=== PATIENT | female | born 1935 | race Caucasian/White ===

== ENCOUNTER → 2016-10-28 | Outpatient (CLI) | payer MEDICARE, BC ==
--- NOTE | 2016-10-28 14:30 | XR ---
EXAMINATION TYPE: XR chest 2V DATE OF EXAM: 10/28/2016 1:39 PM COMPARISON: Prior chest x-ray from April 11 2015 HISTORY: Acute bronchitis, cough TECHNIQUE: Frontal and lateral views of the chest are obtained. FINDINGS: There is no focal air space opacity, pleural effusion, or pneumothorax seen. The cardiac silhouette size is stable. Prominent lung volume may be indicative of underlying COPD. The osseous st ructures are intact, scoliotic curvature of the spine is unchanged.. IMPRESSION: No acute cardiopulmonary process.
== END ==
LOC: RADXRMAIN 13:24
PROVIDERS: ATTEND Internal Medicine
DX: J20.9 Acute bronchitis, unspecified (principal)
CPT/HCPCS: 71020

== ENCOUNTER → 2017-03-03 | Outpatient (CLI) | payer MEDICARE, BC ==
--- NOTE | 2017-03-03 11:29 | US ---
EXAMINATION TYPE: US carotid duplex BILAT DATE OF EXAM: 03/03/2017 COMPARISON: US CLINICAL HISTORY: I65.23 carotid stenosis. Stenosis EXAM MEASUREMENTS: RIGHT: Peak Systolic Velocity (PSV) cm/sec ----- Right CCA: 85.0 ----- Right ICA: 80.3 ----- Right ECA: 68.5 ICA/CCA ratio: 0.9 RIGHT: End Diastole cm/sec ----- Right CCA: 20.9 ----- Right ICA: 25.4 ----- Right ECA: 6.0 LEFT: Peak Systolic Velocity (PSV) cm/sec ----- Left CCA: 65.2 ----- Left ICA: 94.8 ----- Left ECA: 69.5 ICA/CCA ratio: 1.5 LEFT: End Diastole cm/sec ----- Left CCA: 15.7 ----- Left ICA: 29.0 ----- Left ECA: 0.0 VERTEBRALS (direction of flow): Right Vertebral: Antegrade Left Vertebral: Antegrade Bilateral intimal thickening, plaque bilateral bulb, no significant stenosis. IMPRESSION: Minimal atherosclerosis within the bilateral carotid bulbs with no 8 hemodynamically sig nificant stenosis
--- NOTE | 2017-03-04 17:41 | ECHOF ---
Referral Reason:I65.23 carotid stenosis MEASUREMENTS -------- HEIGHT: 167.6 cm WEIGHT: 70.3 kg BP: 143/70 RVIDd: 1.8 cm (< 3.3) IVSd: 1.0 cm (0.6 - 1.1) LVIDd: 4.9 cm (3.9 - 5.3) LVPWd: 1.0 cm (0.6 - 1.1) IVSs: 1.4 cm LVIDs: 3.2 cm LVPWs: 1.4 cm LAESV Index (A-L): 26.83 ml/m Ao Diam: 3.5 cm (2.0 - 3.7) AV Cusp: 2.2 cm (1.5 - 2.6) LA Diam: 3.2 cm (2.7 - 3.8) MV EXCURSION: 17.007 mm (> 18.000) MV EF SLOPE: 93 mm/s (70 - 150) EPSS: 0.8 cm MV E Rachid: 0.99 m/s MV DecT: 230 ms MV A Rachid: 0.91 m/s MV E/A Ratio: 1.08 AR PHT: 556 ms RAP: 5.00 mmHg RVSP: 44.18 mmHg FINDINGS -------- Sinus rhythm. This was a technically adequate study. Overall left ventricular systolic function is normal with, an EF between 60 - 65 %. The right ventricle is normal in size and function. Normal LA size by volume 22+/-6 ml/m2. The right atrium is normal in size. Aortic valve is trileaflet and is mildly thickened. There is mild aortic regurgitation. The aortic pressure half-time by doppler is 556ms. There is no evidence of aortic stenosis. The mitral valve leaflets are mildly thickened. Mild mitral annular calcification present. Mild mitral regurgitation is present. Mild tricuspid regurgitation present. There is mild pulmonary hypertension. The right ventricular systolic pressure, as measured by Doppler, is 44.18mmHg. Trace/mild (physiologic) pulmonic regurgitation. The aortic root size is normal. The inferior vena cava is mildly dilated. There is a trivial pericardial effusion present. CONCLUSIONS -------- 1. Sinus rhythm. 2. Mild tricuspid regurgitation present. 3. There is mild pulmonary hypertension. 4. The right ventricular systolic pressure, as measured by Doppler, is 44.18mmHg. 5. Trace/mild (physiologic) pulmonic regurgitation. 6. The aortic root size is normal. 7. The inferior vena cava is mildly dilated. 8. There is a trivial pericardial effusion present. 9. This was a technically adequate study. 10. Overall left ventricular systolic function is normal with, an EF between 60 - 65 %. 11. Normal LA size by volume 22+/-6 ml/m2. 12. Aortic valve is trileaflet and is mildly thickened. 13. The aortic pressure half-time by doppler is 556ms. 14. The mitral valve leaflets are mildly thickened. 15. Mild mitral annular calcification present. 16. Mild mitral regurgitation is present. WET PROCESS MILLER: Job Miranda RDCS
== END | disposition home or self-care (01) ==
LOC: RADUSMAIN 10:34
PROVIDERS: ATTEND Internal Medicine
DX: I65.23 Occlusion and stenosis of bilateral carotid arteries (principal); I07.1 Rheumatic tricuspid insufficiency; I34.0 Nonrheumatic mitral (valve) insufficiency; I31.3 Pericardial effusion (noninflammatory); I27.2 Other secondary pulmonary hypertension
CPT/HCPCS: 93306; 93880

== ENCOUNTER → 2019-06-04 | Outpatient (CLI) | payer MEDICARE, BC ==
--- NOTE | 2019-06-04 16:22 | US ---
EXAMINATION TYPE: US carotid duplex BILAT DATE OF EXAM: 06/04/2019 COMPARISON: Carotid ultrasound March 03, 2017 CLINICAL HISTORY: I65.23 carotid stenosis I34.0 mitral regurg. Stenosis EXAM MEASUREMENTS: RIGHT: Peak Systolic Velocity (PSV) cm/sec ----- Right CCA: 80.1 ----- Right ICA: 75.3 ----- Right ECA: 64.0 ICA/CCA ratio: 0.6 RIGHT: End Diastole cm/sec ----- Right CCA: 22.9 ----- Right ICA: 26.8 ----- Right ECA: 0 LEFT: Peak Systolic Velocity (PSV) cm/sec ----- Left CCA: 59.2 ----- Left ICA: 77.0 ----- Left ECA: 89.9 ICA/CCA ratio: 0.9 LEFT: End Diastole cm/sec ----- Left CCA: 18.8 ----- Left ICA: 31.7 ----- Left ECA: 0 VERTEBRALS (direction of flow): Right Vertebral: Antegrade Left Vertebral: Antegrade Rhythm: Normal Vessels dive deep. No significant stenosis seen Suboptimal study due to tortuous vessel course. Grayscale images show no obvious large suspicious jose que. IMPRESSION: No hemodynamically significant stenosis in either internal carotid artery. Criteria for Assigning % of Stenosis / Diameter reduction (Estimation based on the indirect measurements of the internal carotid artery velocities (ICA PSV). 1. Normal (no stenosis)=ICA PSV < 125 cm/s: ratio < 2.0: ICA EDV<40 cm/s. 2. Less than 50% stenosis=ICA PSV < 125 cm/s: ratio < 2.0: ICA EDV<40 cm/s. 3. 50 to 69% stenosis=ICA PSV of 125 to 230 cm/s: ration 2.0 ? 4.0: ICA EDV 40-100 cm/s. 4. Greater than 70% stenosis to near occlusion= ICA PSV > 230 cm/s: ratio > 4.0: ICA EDV > 100 cm/s. 5. Near occlusion= ICA PSV velocities may be low or undetectable: variable ratio and ICA EDV. 6. Total occlusion=unable to detect flow.
--- NOTE | 2019-06-05 11:01 | ECHOF ---
Referral Reason:I65.23 carotid stenosis I34.0 mitral regurg MEASUREMENTS -------- HEIGHT: 167.6 cm WEIGHT: 69.4 kg BP: IVSd: 0.9 cm (0.6 - 1.1) LVIDd: 4.7 cm (3.9 - 5.3) LVPWd: 1.0 cm (0.6 - 1.1) IVSs: 1.6 cm LVIDs: 2.5 cm LVPWs: 1.6 cm LAESV Index (A-L): 42.42 ml/m Ao Diam: 3.1 cm (2.0 - 3.7) AV Cusp: 2.1 cm (1.5 - 2.6) LA Diam: 3.4 cm (2.7 - 3.8) MV EXCURSION: 15.965 mm (> 18.000) MV EF SLOPE: 166 mm/s (70 - 150) EPSS: 0.4 cm MV E Rachid: 0.83 m/s MV DecT: 216 ms MV A Rachid: 0.78 m/s MV E/A Ratio: 1.06 AR PHT: 484 ms RAP: 15.00 mmHg RVSP: 61.13 mmHg TAPSE: 20.95 mm FINDINGS -------- Sinus rhythm. This was a technically good study. The left ventricular size is normal. Left ventricular wall thickness is normal. Overall left vent ricular systolic function is normal with, an EF between 55 - 60 %. Normal LAP Grade 1 Diastolic Dys function. The right ventricle is normal in size. The right ventricular systolic function is normal. LA is severely dilated >40 ml/m2 The right atrial size is normal. Interatrial and interventricular septum intact. Aortic valve is trileaflet and is mildly thickened. There is mild aortic regurgitation. The mitral valve is normal. The mitral valve leaflets are mildly thickened. Moderate mitral regur gitation is present. The tricuspid valve appears structurally normal. Moderate tricuspid regurgitation present. There is moderate pulmonary hypertension. The right ventricular systolic pressure, as measured by Doppler , is 61.13mmHg. Trace/mild (physiologic) pulmonic regurgitation. The aortic root size is normal. The inferior vena cava is mildly dilated. There is no pericardial effusion. CONCLUSIONS -------- 1. Sinus rhythm. 2. This was a technically good study. 3. The left ventricular size is normal. 4. Left ventricular wall thickness is normal. 5. Overall left ventricular systolic function is normal with, an EF between 55 - 60 %. 6. Normal LAP Grade 1 Diastolic Dysfunction. 7. The right ventricle is normal in size. 8. The right ventricular systolic function is normal. 9. LA is severely dilated >40 ml/m2 10. The right atrial size is normal. 11. Interatrial and interventricular septum intact. 12. Aortic valve is trileaflet and is mildly thickened. 13. There is mild aortic regurgitation. 14. The mitral valve is normal. 15. The mitral valve leaflets are mildly thickened. 16. Moderate mitral regurgitation is present. 17. The tricuspid valve appears structurally normal. 18. Moderate tricuspid regurgitation present. 19. There is moderate pulmonary hypertension. 20. The right ventricular systolic pressure, as measured by Doppler, is 61.13mmHg. 21. Trace/mild (physiologic) pulmonic regurgitation. 22. The aortic root size is normal. 23. The inferior vena cava is mildly dilated. 24. There is no pericardial effusion. FRUIT THINNER MACHINE OPERATOR: Malathi Serna RDCS
== END | disposition home or self-care (01) ==
LOC: RADECHMAIN 14:57
PROVIDERS: ATTEND Internal Medicine
DX: I08.3 Combined rheumatic disorders of mitral, aortic and tricuspid valves (principal); I27.20 Pulmonary hypertension, unspecified; I65.23 Occlusion and stenosis of bilateral carotid arteries
CPT/HCPCS: 93306; 93880

== ENCOUNTER → 2019-10-03 | Outpatient (CLI) | payer MEDICARE, BC ==
--- NOTE | 2019-10-03 13:03 | XR ---
EXAMINATION TYPE: XR chest 2V DATE OF EXAM: 10/03/2019 COMPARISON: 10/28/2016 HISTORY: Cough for 5 days TECHNIQUE: Frontal and lateral views of the chest are obtained. FINDINGS: There is patchy right basilar interstitial airspace disease in comparison to the prior. Th ere is also marked tortuosity of the descending thoracic aorta and levoscoliosis of the thoracic spin e is seen on the prior. Cardiomediastinal silhouette is upper limits of normal size. No pneumothorax or pleural effusion seen. Diffuse osseous demineralization present. Mild to moderate degenerative ender nge of the thoracic spine. IMPRESSION: New reticular opacity at the right lung base. Consider atypical pneumonia or less likely bronchitis.
== END | disposition home or self-care (01) ==
LOC: RADXRMAIN 12:29
PROVIDERS: ATTEND Internal Medicine
DX: R91.8 Other nonspecific abnormal finding of lung field (principal)
CPT/HCPCS: 71046

== ENCOUNTER → 2021-01-29 | Outpatient (CLI) | payer MEDICARE, BC ==
[2021-01-29 10:26] LABS: Appearance,Urine Clear (Clear); Bilirubin,Urine Negative (Negative); Blood,Urine Negative (Negative); Color,Urine Light Yellow; Glucose,Urine (UA) Negative (Negative); Ketones,Urine Negative (Negative); Leukocyte Esterase,Urine Small (Negative); Mucus,Urine Rare /hpf; Nitrite,Urine Negative (Negative); PH, Urine 6.5 (5.0-8.0); Protein,Urine Negative (Negative); RBC,Urine 1 /hpf (0-5); Specific Gravity,Urine 1.008 (1.001-1.035); Squamous Epithelial Cell,Urine 2 /hpf (0-4); Urobilinogen,Urine <2.0 mg/dL (<2.0); WBC,Urine 2 /hpf (0-5)
[2021-01-29 10:28] LABS: HGB 11.9 gm/dL (11.4-16.0); MCH 32.7 pg (25.0-35.0); MCV 96.2 fL (80.0-100.0); Mean Platelet Volume 6.7; Platelet Count 180 k/uL (150-450); RBC 3.64 m/uL (3.80-5.40); RDW 13.9 % (11.5-15.5); WBC 4.7 k/uL (3.8-10.6)
[2021-01-29 10:35] LABS: Albumin 4.2 g/dL (3.5-5.0); Potassium 4.8 mmol/L (3.5-5.1); Total Bilirubin 0.6 mg/dL (0.2-1.3); Total Protein 6.7 g/dL (6.3-8.2)
[2021-01-29 10:49] LABS: INR 0.9 (<1.2)
== END | disposition home or self-care (01) ==
LOC: LABPAT 09:06
PROVIDERS: ATTEND Orthopaedic Surgery
DX: Z01.818 Encounter for other preprocedural examination (principal); I48.91 Unspecified atrial fibrillation; R94.31 Abnormal electrocardiogram [ECG] [EKG]
CPT/HCPCS: 36415; 80053; 81001; 85027; 85610; 85730; 87070; 93005

== ENCOUNTER 2021-02-16 13:39 | Day surgery (SDC) | payer MEDICARE, BC ==
[2021-02-03 16:22] VITALS: BMI 25.2
[~2021-02-16 13:39] MED LIST: ACETAMINOPHEN TAB 500 MG TAB PO PRN; DEXAMETHASONE SOD PHOSPHATE 4 MG/ML 1 ML VIAL IV ONE; GABAPENTIN 300 MG CAP PO PRN; HYDROmorphone 0.5 MG/0.5 ML SYRINGE IVP PRN; LIDOCAINE 1% (10MG/ML) FOR IV START INTRADERMA PRN; MELOXICAM 7.5 MG TAB PO PRN; MIDAZOLAM 2 MG/2 ML VIAL IV PRN; ONDANSETRON 4 MG/2 ML VIAL IVP ONE; ONDANSETRON 4 MG/2 ML VIAL IVP PRN; ROPIVACAINE 246.25 MG, EPINEPHrine 0.5 MG, KETOROLAC 30 MG, cloNIDine HCL/PF 80 MCG, WA... MISCELLANE PRN; TRANEXAMIC ACID 1,000 MG in SODIUM CHLORIDE 0.9% 100 ML IVPB PRN
[2021-02-16] MEDS: LACTATED RINGERS 1,000 ML IV SCH ×3 (14:49→23:26)
[2021-02-16] MEDS ORDERED: MIDAZOLAM 2 MG/2 ML VIAL IVP ONE (14:50)
[2021-02-16] MEDS ORDERED: DEXAMETHASONE SOD PHOSPHATE 4 MG/ML 1 ML VIAL ONE (15:34)
[2021-02-16] MEDS ORDERED: ROPIVACAINE 5 MG/ML 30 ML VIAL ONE (15:34)
[2021-02-16] MEDS ORDERED: PROPOFOL 10 MG/ML 20 ML VIAL IV ONE (15:34)
[2021-02-16] MEDS ORDERED: TRANEXAMIC ACID 1,000 MG/10 ML VIAL ONE (15:34)
[2021-02-16] MEDS ORDERED: SODIUM CHLORIDE 0.9% 100 ML BAG ONE (15:34)
--- NOTE | 2021-02-16 17:29 | P.OP ---
Date of Procedure: 02/16/21 Procedure(s) Performed: PREOPERATIVE DIAGNOSIS: Left knee severe osteoarthritis with genu varum POSTOPERATIVE DIAGNOSIS: Left knee severe osteoarthritis with genu varum; 2. Diminished bone quality/osteopenia/osteoporosis OPERATION: Left knee cemented total replacement arthroplasty. ANESTHESIA: Spinal and Regional with IPAC and ACB ESTIMATED BLOOD LOSS: 150 ml. LABORER TAN HOUSE: Elba De La Rosa PA-C (assistance with: patient positioning, retraction, exposure, hemostasis, leg positioning, implantation, irrigation, closure, dressing) COMPLICATIONS: None apparent. COMPONENTS IMPLANTED: Persona system from [employer] with tibial stem extension INDICATIONS: Mrs. Grullon is a 86 year old female with a history of knee osteoarthritis. The patient's knee is end-stage, and conservative management has failed. The operation of knee replacement has been discussed at length in the office, as well as potential risks and complications. These are inclusive of, but not limited to: bleeding, infection, scarring, discomfort, blood vessel and nerve damage, need for further surgery, failure to relieve symptoms, persistence, recurrence, or worsening of problems, loosening, dislocation, wear, blood clot, pulmonary embolism, , gait dysfunction, stiffness, and other risks as discussed in the office. The patient elects to proceed and the consent form has been signed. PROCEDURE: The patient was taken to the operating room and positioned on the operating room table in the supine position. Anesthesia was initiated. Care was taken to make sure that all pressure points were adequately padded. The operative lower extremity was prepped and draped in the usual aseptic fashion using ChloraPrep. Ioban drape was used for the case and the patient received intravenous antibiotics within one hour of the incision. A pneumotourniquet and leg clay were used for the case. The limb was exsanguinated with an Esmarch bandage and the tourniquet was inflated to 350 mmHg. Time-out was called confirming the patient's identity, side, procedure and administration of antibiotics. The incision was then created midline directly over the knee, carried down through skin and into the subcutaneous tissues and down to fascia. Full thickness subcutaneous medial flap was developed. Medial parapatellar ar throtomy was performed and the interior of the knee was inspected. There was end-stage osteoarthritis of the knee with a mild to moderate genu varum type deformity. The fat pad was excised and proximal medial release on the tibia was completed using meticulous dissection and a curved osteotome. The anterior cruciate ligament was taken down. Note was made of significant attrition of the anterior and significant degenerative appearance of the posterior cruciate ligaments. The exposure was excellent. The knee was flexed 90 degrees and the patella was everted. A spot was chosen on the femur approximately 1 cm anterior to the posterior cruciate ligament insertion and an intramedullary hole was created within the femur. The intramedullary guide was then set to 5 degrees of valgus. The distal cutting block was attached and pinned into position. An appropriate amount of distal femoral resection was set. The oscillating saw was then used to make the distal femoral cut. This cut was confirmed to be flat with the flat end of an osteotome. The retractors were placed around the tibia and the tibial surface was addressed. The angle and depth of resection was adjusted using an extramedullary cutting guide. The guide had a built-in 3 degree posterior slope cut. Once the cutting guide was adjusted appropriately and in line with the axis of the tibia and confirmed to be in good position in relation to the second metatarsal and transmalleolar axis, the tibial cut was then created with protection of the posterior neurovascular structures and the collateral ligaments. Note was made of diminished bone quality and therefore a short tibial stem extension was planned. The tibial cut surface was removed and sized. Femoral sizing was then accomplished using anterior referencing. Care was taken to analyze the posterior condyles for signs of deficiency or severe wear, and adjustments to the guide were made, as appropriate. 3 degree external rotation pins were placed. The cutting jig for the femur was applied to these pins. The planned cuts were further analyzed prior to performing them with the oscillating saw. No femoral notching was produced. Bone fragments were removed and the cut surfaces were finished, as necessary, with a reciprocating saw. Spacer block technique was then used to confirm that the flexion and extension gaps were equal. Soft tissue releases and adjustment of the tibial and/or femoral cuts were made, as necessary, until the gaps were equal. This included release of the posterior cruciate ligament, which was tight in this patient and, if left unreleased, would have resulted in poor kinematics and possibly early loosening. The femur was then further finished for a posterior cruciate ligament substituting component. Patellar resurfacing was performed using a reamer. The size of the required patellar component was estimated and the patellar surface was then reamed down to a residual thickness which would recreate the penobscot thickness with the component. The exact placement of the patellar component was adjusted for position based on preoperative x-rays and intraoperative findings. The trial components were inserted. The tibial tray was allowed to self center and the patella was noted to track very well. The position of the tibial component was marked and the tibia was then finished for a stemmed tibial component. Cement was mixed on the back table and applied to the final components. Trial components were removed and the cut surfaces of the bone were pulse lavaged thoroughly and dried. Cement was then applied to the tibial s urface and pressurized into the surface using finger pressurization technique. The tibial component with stem extension was then applied and excess cement was removed after it was impacted securely and noted to be flush with the cut surface. In similar fashion, the cement was applied to the cut femoral surface, pressurized in using finger pressurization and the component was impacted into place. Excess cement was removed. The polyethylene spacer was then implanted and locked into position. The patellar component was then applied in similar technique and a patellar clamp was used to hold the patella in place as the cement hardened. Once the cement had fully hardened, the knee was reinspected. Any other cement extrusion was removed and final kinematic testing showed range of motion from 0 to 130 degrees with excellent stability, both medially and laterally and appropriate alignment of the leg. Patellar tracking was excellent. The knee was then thoroughly pulse lavaged with normal saline. The tourniquet was deflated and hemostasis was obtained with electrocautery and IV tranexamic acid, 1 g given at the start of the operation and 1 g at the start of closure. Closure was with #2 Ethibond in the fascia/capsule and supplemented with #2 Quill, 2-0 Vicryl suture was used for the subcutaneous tissues and 3-0 Quill for the skin. Dermabond/Steri-Strips were then applied. A lightly compressive dressing was applied using Webril and an Jerry wrap. The patient was then transferred to stretcher and taken to the recovery room in stable condition. Sponge and needle counts were correct..
[2021-02-16] MEDS ORDERED: ONDANSETRON 4 MG/2 ML VIAL IVP PRN (17:49)
[2021-02-16] MEDS ORDERED: HYDROmorphone 0.5 MG/0.5 ML SYRINGE IVP PRN ×2 (17:49)
[2021-02-16] MEDS ORDERED: HYDROcodone/APAP 5-325MG 1 EACH TAB PO PRN ×2 (17:49)
[2021-02-16] MEDS ORDERED: HYDROmorphone 0.2 MG/1 ML SYRINGE IVP PRN (17:49)
[2021-02-16] MEDS ORDERED: NALOXONE 0.4 MG/ML 1 ML VIAL IV PRN (17:49)
[2021-02-16] MEDS ORDERED: ROPIVACAINE 0.2%-NS ON-Q PUMP 2 MG/ML EACH MISCELLANE ONE (17:59)
--- NOTE | 2021-02-16 18:52 | XR ---
EXAMINATION TYPE: XR knee limited LT DATE OF EXAM: 02/16/2021 COMPARISON: None HISTORY: Knee surgery TECHNIQUE: 2 views FINDINGS: There is left knee prosthesis. Components appear in anatomic position. IMPRESSION: No complicating process seen.
[2021-02-16] MEDS: ACETAMINOPHEN TAB 325 MG TAB PO PRN (20:30)
[2021-02-16] MEDS ORDERED: SENNOSIDES-DOCUSATE SODIUM 1 EACH TAB PO SCH (21:00)
[2021-02-16] MEDS: ASPIRIN 81 MG PO SCH (22:36)
[2021-02-17] MEDS: ACETAMINOPHEN TAB 325 MG TAB PO PRN (02:00)
[2021-02-17] MEDS: LACTATED RINGERS 1,000 ML IV SCH ×2 (05:32→15:06)
--- NOTE | 2021-02-17 07:25 | P.PN ---
Progress Note - Text 02/17/21 713am 86-year-old female status post total knee replacement by Dr. Ribeiro. Patient has an On-Q pump for postop pain control with the solution running at 8 mL an hour with a VAS of 2. Dressing clean dry and intact. And to continue On-Q pump infusion
--- NOTE | 2021-02-17 07:27 | P.ANPRN ---
Procedure Note - Anesthesia - Nerve Block Performed Left Adductor Canal Infusion Time Out Performed: Yes Date of Procedure: 02/16/21 Procedure Start Time: 12:49 Procedure Stop Time: 13:01 Location of Patient: PreOp Indication: Acute Post-Operative Pain, Requested by Surgeon Sedation Type: Sedate with meaningful contact maintained Preparation: Sterile Prep, Sterile Dressing Position: Supine Catheter: Indwelling Needle Types: Pajunk Needle Gauge: 21 Ultrasound used to visualize needle placement: Yes Ultrasound used to observe medication spread: Yes Blood Aspirated: No Pain Paresthesia on Injection Noted: No Resistance on Injection: Normal Image Stored and Saved: Yes Events: Uneventful and Well Tolerated (Ropivacaine 0.5% 20 mL was given)
--- NOTE | 2021-02-17 07:28 | P.ANPRN ---
Procedure Note - Anesthesia - Nerve Block Performed Left iPack Single Time Out Performed: Yes Date of Procedure: 02/16/21 Procedure Start Time: 12:49 Procedure Stop Time: 13:01 Location of Patient: PreOp Indication: Acute Post-Operative Pain, Requested by Surgeon Sedation Type: Sedate with meaningful contact maintained Preparation: Sterile Prep Position: Supine Needle Types: Pajunk Needle Gauge: 21 Ultrasound used to visualize needle placement: Yes Ultrasound used to observe medication spread: Yes Blood Aspirated: No Pain Paresthesia on Injection Noted: No Resistance on Injection: Normal Image Stored and Saved: Yes Events: Uneventful and Well Tolerated (Lidocaine 0.5% 20 mL plus dexamethasone 4 mg)
[2021-02-17] MEDS ORDERED: MULTIVITAMINS, THERA 1 EACH TAB PO SCH (09:00)
[2021-02-17] MEDS ORDERED: FERROUS SULFATE 325 MG TAB PO SCH (09:00)
[2021-02-17] MEDS ORDERED: LOSARTAN 50 MG TAB PO SCH (09:00)
[2021-02-17] MEDS: ASPIRIN 81 MG PO SCH (09:05)
[2021-02-17 10:25] LABS: Basophils # (A) 0.01 X 10*3/uL (0.00-0.10); Basophils % (A) 0.1 %; Eosinophils # (A) 0 X 10*3/uL (0.04-0.35); Eosinophils % (A) 0 %; HCT 32.1 % (37.2-46.3); HGB 10.6 g/dL (12.0-15.0); Lymphocytes # (A) 0.38 X 10*3/uL (0.90-5.00); Lymphocytes % (A) 5.2 %; MCH 32.1 pg (27.0-32.0); MCV 97.3 fL (80.0-97.0); Mean Platelet Volume 9.7 fL (9.5-12.2); Monocytes # (A) 0.47 X 10*3/uL (0.20-1.00); Monocytes % (A) 6.4 %; Neutrophils # (A) 6.48 X 10*3/uL (1.80-7.70); Neutrophils % (A) 87.9 %; Platelet Count 131 X 10*3/uL (140-440); WBC 7.37 X 10*3/uL (4.50-10.00)
--- NOTE | 2021-02-17 11:04 | P.DS ---
Providers Expected date of discharge: 02/17/21 Attending physician: Brady Ribeiro Consults: 02/16/21 17:49 Consult Physician Routine Consulting Provider: Cyn Garcia Consult Reason/Comments: medical management Do you want consulting provider notified?: Yes Primary care physician: Cyn Garcia [facility] Course: This is an 86-year-old female who was last seen with complaint of continued left knee pain. The patient has a known history of degenerative arthritis of the left knee and presents to discuss surgical options. After discussion and consideration the patient elects to proceed with total left knee arthroplasty. The patient is seen preoperatively by Dr. Garcia and cleared for surgery. The patient is admitted to [facility] for total left knee arthroplasty. The procedures performed without complication or sequelae. Patient is doing well postoperatively. Vital signs are stable at discharge. Labs are stable at discharge. Patient is seen and examined bedside this morning. She is currently up to the bedside chair. Patient states her pain is well-controlled at this time. She is voiding freely. Patient is tolerating her diet well. She is ambulating with a walker with minimal assistance. Patient denies chest pain, shortness of breath, nausea, vomiting, numbness or tingling of the left lower extremity. The patient is discharged to home on postop day #1 pending medical clearance. Please see orders and refer to the [facility] rec for accurate list of medications. Patient Condition at Discharge: Fair Plan - Discharge Summary Discharge Rx Participant: No New Discharge Prescriptions: New Sennosides-Docusate Sodium [Senokot-S] 2 tab PO HS PRN #30 tablet PRN Reason: Constipation No Action Cranberry Conc/C/Bacill Coag [Cranberry Tablet] 1 each PO DAILY Ascorbic Acid/Multivit-Min [Emergen-C 1,000 mg Packet] 1,000 mg PO DAILY Acetaminophen [Tylenol Extra Strength] 500 mg PO BID Nebivolol [Bystolic] 5 mg PO DAILY@1500 Rivaroxaban [Xarelto] 20 mg PO DAILY@1500 Multivitamin [Multivitamins Adult Gummies] 2 each PO DAILY Calcium Carbonate/Vitamin D3 [Calcium 500 mg Chewable Tablet] 250 mg PO DAILY Losartan Potassium [Cozaar] 50 mg PO DAILY Ferrous Sulfate [Feosol] 325 mg PO DAILY Discharge Medication List Cranberry Conc/C/Bacill Coag [Cranberry Tablet] 1 each PO DAILY 04/11/15 [History] Acetaminophen [Tylenol Extra Strength] 500 mg PO BID 02/03/21 [History] Ascorbic Acid/Multivit-Min [Emergen-C 1,000 mg Packet] 1,000 mg PO DAILY 02/03/21 [History] Calcium Carbonate/Vitamin D3 [Calcium 500 mg Chewable Tablet] 250 mg PO DAILY 02/03/21 [History] Ferrous Sulfate [Feosol] 325 mg PO DAILY 02/03/21 [History] Losartan Potassium [Cozaar] 50 mg PO DAILY 02/03/21 [History] Multivitamin [Multivitamins Adult Gummies] 2 each PO DAILY 02/03/21 [History] Nebivolol [Bystolic] 5 mg PO DAILY@1500 02/13/21 [History] Rivaroxaban [Xarelto] 20 mg PO DAILY@1500 02/13/21 [History] Sennosides-Docusate Sodium [Senokot-S] 2 tab PO HS PRN #30 tablet 02/17/21 [Rx] Follow up Appointment(s)/Referral(s): Brady Ribeiro MD [STAFF PHYSICIAN] - 1 Week [facility] Visiting Nurse, [NON-STAFF] - As Needed Activity/Diet/Wound Care/Special Instructions: Keep Optifoam dressing intact. Use walker for ambulation. Resume Xarelto per Dr. Garcia. Tylenol for pain control. Follow-up in the office in one week. Call the office with any questions or concerns, Discharge Disposition: HOME WITH HOME HEALTH SERVICES
[2021-02-17 12:44] VITALS: BP 113/69; PULSE 85; RESP 17; TEMP 97.7
[2021-02-17] MEDS ORDERED: RIVAROXABAN 20 MG TAB PO SCH (15:00)
[2021-02-17] MEDS ORDERED: NEBIVOLOL 5 MG TAB PO SCH (15:00)
== END 2021-02-17 15:51 | disposition home health service (06) ==
LOC: OR 13:39 → 4SSUR 18:23 → OR 02-17 15:51
PROVIDERS: ATTEND Orthopaedic Surgery
DX: M17.12 Unilateral primary osteoarthritis, left knee (principal); M21.162 Varus deformity, not elsewhere classified, left knee; I48.91 Unspecified atrial fibrillation; Z97.3 Presence of spectacles and contact lenses; Z96.651 Presence of right artificial knee joint; Z98.890 Other specified postprocedural states; Z87.891 Personal history of nicotine dependence; Z96.643 Presence of artificial hip joint, bilateral; I10 Essential (primary) hypertension; E78.2 Mixed hyperlipidemia; I34.0 Nonrheumatic mitral (valve) insufficiency; Z82.49 Family history of ischemic heart disease and other diseases of the circulatory system; Z80.0 Family history of malignant neoplasm of digestive organs; Z83.3 Family history of diabetes mellitus; Z79.01 Long term (current) use of anticoagulants; Z79.899 Other long term (current) drug therapy; Z88.1 Allergy status to other antibiotic agents; Z88.5 Allergy status to narcotic agent; Z88.2 Allergy status to sulfonamides
CPT/HCPCS: 97161; 97166; 64999; 64448; 76942; 85025; 88300; 73560; 27447; C1713; C1776; J2250; J1100; J0690 ×2; J2405; J2795 ×2; J2704

== ENCOUNTER → 2021-02-25 | Outpatient (CLI) | payer MEDICARE, BC ==
--- NOTE | 2021-02-25 15:25 | US ---
EXAMINATION TYPE: US venous doppler duplex LE LT DATE OF EXAM: 02/25/2021 3:09 PM COMPARISON: US RT CLINICAL HISTORY: M25.562 Pain in left leg. left leg swelling post knee replacement 02/16/2021. SIDE PERFORMED: Left TECHNIQUE: The lower extremity deep venous system is examined utilizing real time linear array sonog jose angel with graded compression, doppler sonography and color-flow sonography. VESSELS IMAGED: Common Femoral Vein Deep Femoral Vein Greater Saphenous Vein * Femoral Vein Popliteal Vein Small Saphenous Vein * Proximal Calf Veins (* superficial vessels) Left Leg: Negative for DVT IMPRESSION: 1. Left lower extremity ultrasound negative for deep venous thrombosis.
== END | disposition home or self-care (01) ==
LOC: RADUSWWP 14:45
PROVIDERS: ATTEND Orthopaedic Surgery
DX: M79.605 Pain in left leg (principal); Z96.652 Presence of left artificial knee joint

== ENCOUNTER → 2021-06-15 | Outpatient (CLI) | payer MEDICARE, BC ==
--- NOTE | 2021-06-15 12:08 | US ---
EXAMINATION TYPE: US venous doppler duplex LE DATE OF EXAM: 06/15/2021 11:31 AM COMPARISON: NONE CLINICAL HISTORY: 86-year-old female M25.562,M79.661,Z47.1,Z96.652,M79.662,I80.9. edema bilateral leg s for 4 weeks. Left knee surgery 02/18. patient on blood thinner SIDE PERFORMED: bilateral TECHNIQUE: The lower extremity deep venous system is examined utilizing real time linear array sonog jose angel with graded compression, doppler sonography and color-flow sonography. FINDINGS: VESSELS IMAGED: Common Femoral Vein Deep Femoral Vein Greater Saphenous Vein * Femoral Vein Popliteal Vein Small Saphenous Vein * Proximal Calf Veins (* superficial vessels) [employer] notes:technical limitations due to large amount of soft tissue edema Right Leg: no evidence of DVT as visualized Left Leg: no evidence of DVT as visualized. Complex area left popliteal fossa = 5.5 x 1.9 x 2.7cm yip spected Edwards's cyst IMPRESSION: 1. Technical limitations due to the degree of soft tissue edema. 2. No clear DVT is identified from the groin to the upper calves on either side. 3. Very complex oval area in the left popliteal fossa measuring 5.5 cm. Thickened internal tissue/ivory ris is suggested. A complex Edwards cyst is suspected. Recommend three-month follow-up ultrasound to re assess.
== END | disposition home or self-care (01) ==
LOC: RADUSWWP 10:58
PROVIDERS: ATTEND Orthopaedic Surgery
DX: R60.0 Localized edema (principal)
CPT/HCPCS: 93970

== ENCOUNTER → 2022-04-12 | Outpatient (CLI) | payer MEDICARE, BC ==
[2022-04-12 14:41] LABS: HCT 38.3 % (37.2-46.3); HGB 12.7 g/dL (12.0-15.0); MCH 32.2 pg (27.0-32.0); MCHC 33.2 g/dL (32.0-37.0); Mean Platelet Volume 9.5 fL (9.5-12.2); NRBC Per 100 WBC 0 /100 WBCS (0.0-0.0); Platelet Count 154 X 10*3/uL (140-440); RBC 3.95 X 10*6/uL (4.10-5.20); RDW 15.1 % (11.5-14.5); WBC 4.33 X 10*3/uL (4.50-10.00)
[2022-04-12 15:32] LABS: African American GFR (CKD) 30.9 (60.0-200.0); Albumin 4.3 g/dL (3.8-4.9); BUN/Creat Ratio 32.96 Ratio (12.00-20.00); Blood Urea Nitrogen 55.7 mg/dL (9.0-27.0); Carbon Dioxide 28.2 mmol/L (20.0-27.5); Chloride 98 mmol/L (96-109); Glucose 70 mg/dL (70-110); Non-African American GFR(CKD) 26.7 (60.0-200.0); Phosphorus 3.9 mg/dL (2.4-5.1); Potassium 4.3 mmol/L (3.5-5.5); Sodium 139 mmol/L (135-145)
== END | disposition home or self-care (01) ==
LOC: LABWHC1 09:40
PROVIDERS: ATTEND Internal Medicine
DX: E78.2 Mixed hyperlipidemia (principal); R06.02 Shortness of breath; R07.9 Chest pain, unspecified
CPT/HCPCS: 36415; 80069; 84443; 85027

== ENCOUNTER → 2022-06-29 | Outpatient (CLI) | payer MEDICARE, BC ==
--- NOTE | 2022-06-29 12:50 | CT ---
EXAMINATION TYPE: CT abdomen pelvis wo con DATE OF EXAM: 06/29/2022 HISTORY: Lower GI bleed. CT DLP: 382.9 mGycm. Automated Exposure Control for Dose Reduction was Utilized. TECHNIQUE: CT scan of the abdomen and pelvis is performed with oral but without IV contrast. COMPARISON: NONE FINDINGS: Within the limitations of a non-contrast study, the following observations are made. LUNG BASES: Cardiomegaly is present. Right coronary artery calcification and/or stent is partially im aged. There is mild bibasilar linear scarring and/or atelectasis. LIVER/GB: Slightly lobulated contour to the liver which is normal in size. No biliary dilatation PANCREAS: Mild generalized atrophy. SPLEEN: No significant abnormality is seen. ADRENALS: No significant abnormality is seen. KIDNEYS: Cortical thinning bilaterally. No renal stones seen bilaterally BOWEL: Oral contrast does not reach level of terminal ileum making evaluation of distal bowel slightl y suboptimal. There is no suspicious small bowel dilatation. There is small bowel feces sign in the d istal ileal loops. Finding consistent with delayed passage of ingested material to colonic level. Mil d diffuse colonic fecal prominence is seen. No suspicious colonic distention. GENITAL ORGANS: Anteverted uterus. LYMPH NODES: No greater than 1cm abdominal or pelvic lymph nodes are appreciated. 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 Moderate to severe disc space narrowing L4-L5 level with vacuum dis c phenomenon. Multilevel facet arthropathy in the lower lumbar spine. OTHER: No significant additional abnormality is seen. IMPRESSION: Mild diffuse colonic fecal stasis. Delayed passage of ingested material to colonic level. No bowel obstruction. Noncontrast CT is not sensitive for acute GI bleed.
== END | disposition home or self-care (01) ==
LOC: RADCTMAIN 10:23
PROVIDERS: ATTEND Internal Medicine
DX: K92.2 Gastrointestinal hemorrhage, unspecified (principal); R19.5 Other fecal abnormalities
CPT/HCPCS: 74176; Q9967